=== PATIENT | female | born 1985 | race Two or more races ===

== ENCOUNTER 2024-09-11 18:25 | Emergency (ER) | payer MEDICAID, SELFPAY ==
[2024-09-11 18:36] VITALS: BP 127/74; PULSE 92; RESP 20; TEMP 37.7; O2SAT 99
--- NOTE | 2024-09-11 19:23 | PD.EDURI ---
Upper Respiratory Inf. RME/HPI General Chief Complaint: Anxiety Stated Complaint: Lips numb and tongue numb Time Seen by Provider: 09/11/24 19:17 Arrival date/time: 09/11/24 18:25 39F with no significant PMH presents to ED with 1 day of intermittent tongue numbness/tingling, body aches, DAMON, and some N/V. Patient denies AMS, weakness, and vision changes. Limitations: no limitations Related Data Previous Rx's ?Medication ?Instructions ?Recorded tramadol 50 mg tablet (Ultram) 50 mg PO Q4HR PRN HEADACHE #28 tabs 10/23/16 ondansetron 4 mg disintegrating 4 mg PO Q12H PRN nausea and 08/12/22 tablet vomiting #4 tabs ibuprofen 600 mg tablet 600 mg PO Q6H #30 tabs 08/20/23 Allergies Allergy/AdvReac Type Severity Reaction Status Date / Time No Known Allergies Allergy Unknown Uncoded 09/11/24 18:28 Review of Systems Review of Systems Systems Reviewed: All systems reviewed, normal except as documented Constitutional Constitutional: Reports system reviewed and no additional complaints, except as documented, Reports as per HPI, Reports body ache(s), Denies fever(s) and Reports headache(s) ENT Ears, Nose, Mouth, and Throat: Denies disequilibrium and Reports headache(s) Cardiovascular Cardiovascular: Reports system reviewed and no additional complaints, except as documented, Denies chest pain and Denies dyspnea Respiratory Respiratory: Reports system reviewed and no additional complaints, except as documented, Denies cough and Denies dyspnea Gastrointestinal Gastrointestinal: Reports system reviewed and no additional complaints, except as documented, Reports as per HPI, Denies abdominal pain, Reports nausea and Denies vomiting Musculoskeletal Musculoskeletal: Reports numbness and Reports tingling Neurologic Neurologic: Reports system reviewed and no additional complaints, except as documented, Reports as per HPI, Denies confusion, Denies disequilibrium, Reports headache(s), Reports numbness and Reports tingling Psychiatric Psychiatric: Denies confusion ED Exam General Limitations: Present no limitations General appearance: Present alert and in no apparent distress Head Head exam: Present atraumatic Eye Eye exam: Present normal appearance, PERRL and EOMI ENT ENT exam: Present normal exam, normal oropharynx and mucous membranes moist Neck Neck exam: Present normal inspection, full ROM and trachea midline Chest Chest inspection: Present normal inspection and symmetric chest wall rise Respiratory Respiratory exam: Present normal lung sounds bilaterally Cardiovascular Cardiovascular exam: Present regular rate, normal rhythm and normal heart sounds Abdominal Exam Abdominal exam: Present soft and normal bowel sounds Extremities Exam Extremities exam: Present normal inspection and full ROM Back Exam Back exam: Present normal inspection and full ROM Neurological Exam Neurological exam: Present alert, oriented X3 and CN II-XII intact Psychiatric Psychiatric exam: Present normal affect and normal mood Skin Skin exam: Present warm, dry, intact and normal color Course Quality Measures none Orders Category Date Time Status Bedside COVID-19 Antigen Test NOW Care 09/11/24 18:55 Active Bedside Influenza A&B Antigen Test NOW Care 09/11/24 18:55 Completed Vital Signs Vital signs: Vital Signs Temperature 99.9 F 09/11/24 18:36 Pulse Rate 92 09/11/24 18:36 Respiratory Rate 20 09/11/24 18:36 Blood Pressure 127/74 09/11/24 18:36 Pulse Oximetry (%) 99 09/11/24 18:36 Oxygen Delivery Method Room Air 09/11/24 18:36 O2 at 99% on RA and WNLs Upper Respiratory Infection MDM Narrative MDM Narrative:: 39F with no significant PMH presents to ED with 1 day of intermittent tongue numbness/tingling, body aches, DAMON, and some N/V. Patient denies AMS, weakness, and vision changes. Physical exam reveals normal pupil response and EOM. CN II-XII grossly intact. Gait normal. Speech normal. Normal WOB. Neg pronator test. Patient is afebrile, calm, and alert. COVID+. [employer] given. Patient data External records reviewed:: [facility] previous records Clinical information provided by:: patient Social determinants that could affect healthcare access:: none Patient has the following chronic illnesses:: none How is presenting disease/condition affected by chronic disease/condition?: no chronic disease Evaluation data The following diagnostics were reviewed and interpreted by me:: lab results Lab and/or radiology exams considered but not ordered:: ordered Interpretation Summary: above Medications / Prescriptions Medications or Prescriptions considered but not ordered:: not ordered Medication administrations:: n/a Consultations Consultation(s) initiated? (list below): No Diagnosis Upper Respiratory Differential Diagnosis: upper respiratory infection, croup, otitis media, sinusitis, viral infection, bronchitis, influenza and pharyngitis Most likely diagnosis given after review of the tests above:: COVID Admission Indicated Admission indicated?: not indicated Admission Request Was there a request for admission?: No Disposition Plan Disposition Plan: Discharge Discharge Attestation Discharge Attestation: The patient and all family members were given an opportunity to ask questions and understood the discharge instructions. Discharge instructions specifically effects, indications for sooner follow up or return to the emergency department, and the expected course of current diagnosis. Patient condition: Stable Discharge Plan Plan Patient Disposition: HOME (Self Care) Discharge Disposition comment: Stable Prescriptions/Referrals Prescriptions/Med Rec: No Action tramadol [Ultram] 50 MG tablet 50 mg PO Q4HR PRN (Reason: HEADACHE) Qty: 28 0RF Rx Instructions: FOR PAIN, NOT TO EXCEED 8 TABS IN 24 HRS ondansetron 4 mg tablet,disintegrating 4 mg PO Q12H PRN (Reason: nausea and vomiting) Qty: 4 0RF ibuprofen 600 mg tablet 600 mg PO Q6H Qty: 30 0RF Problem List Clinical Impression: COVID-19 Patient/Caregiver Discharge Instructions Education Materials: Caring for Someone Who Has COVID-19 Additional Instructions: Please follow-up with PCP within 24-48 hours and return immediately if symptoms worsen. Ibuprofen/Tylenol can be used simultaneously for greater fever/pain control. Benadryl is good for cough, congestion, and sleep. Print Language: [place] Stand Alone Forms: Patient Portal Info Letter CHAPARRITA/LEE Supervising Physician CHAPARRITA/LEE Supervising Physician: Dr. Capone
== END 2024-09-11 19:24 | disposition home or self-care (01) ==
PROVIDERS: Emergency Provider Emergency Medicine
DX: U07.1 COVID-19 (principal)
CPT/HCPCS: 87400; 87811; 99282